=== PATIENT | male | born 1995 | race Caucasian/White ===

== ENCOUNTER 2016-09-28 23:35 | Emergency (ER) | payer OTHER ==
[2016-09-29] MEDS ORDERED: fentaNYL CITRATE INJ 50 MCG/ML AMP ONE
[2016-09-29] MEDS ORDERED: fentaNYL CITRATE INJ 50 MCG/ML AMP IV ONE (00:07)
[2016-09-29] MEDS ORDERED: ETOMIDATE INJECTION 2 MG/ML 20ML VIAL IV ONE ×2 (00:16)
[2016-09-29] MEDS ORDERED: SODIUM CHLORIDE 0.9% 1000ML 1,000 ML IVS ONE (00:16)
[2016-09-29] MEDS ORDERED: KETOROLAC TROMETHAMINE INJ 30 MG/ML VIAL IV ONE (00:16)
--- NOTE | 2016-09-29 00:21 | ED.PDOC ---
History of Present Illness - General Chief Complaint: Upper Extremity Injury Stated Complaint: dislocated shoulder Time Seen by Provider: 09/29/16 00:16 Source: patient Exam Limitations: no limitations - History of Present Illness Initial Comments: the patient is a 21-year-old male presenting to the emergency room secondary to a left anterior shoulder dislocation. He has dislocated the shoulder before but only very briefly. He is neurovascularly preserved. This occurred while wrestling. No other injuries. last normal intake was 2 hours prior. Occurred: just prior to arrival Pain - Upper Extremity: moderate: Shoulder, left Method of Injury: sports injury Improving Factors: immobilization Worsening Factors: movement Allergies/Adverse Reactions: Allergies NO KNOWN ALLERGY Allergy (Verified 09/29/16 00:06) Home Medications: Ambulatory Orders Uvleifuuufszu-Egap-Nhsnpfuoig [Fioricet] 1 ea PO Q8H PRN #21 tab 09/29/16 Review of Systems - Review of Systems Constitutional: States: no symptoms reported EENTM: States: no symptoms reported Respiratory: States: no symptoms reported Cardiology: States: no symptoms reported Gastrointestinal/Abdominal: States: no symptoms reported Genitourinary: States: no symptoms reported Musculoskeletal: States: see HPI Skin: States: no symptoms reported Neurological: States: no symptoms reported Endocrine: States: no symptoms reported All other Systems: No Change from Baseline Past Medical History (General) - Patient Medical History Hx Asthma: No Hx of COPD: No Hx Cardiac Disorders: No Hx Hypertension: No Hx Diabetes: No Surgical History: tonsillectomy - Vaccination History Hx Tetanus, Diphtheria Vaccination: No Hx Influenza Vaccination: No - Social History Hx Tobacco Use: No Hx Alcohol Use: Yes - was drinking Family Medical History - Family History Father Hx Family Hypertension: Yes Physical Exam - Physical Exam General Appearance: Alert, No apparent distress Eyes, Ears, Nose, Throat Exam: PERRL/EOMI, normal ENT inspection, TMs normal, pharynx normal Neck: non-tender, full range of motion, supple Cardiovascular/Respiratory: regular rate, rhythm, normal peripheral pulses, normal breath sounds, no respiratory distress Back Exam: normal inspection Shoulder Exam: deformity, pain Elbow/Forearm Exam: normal inspection, non-tender, no evidence of injury, normal ROM Wrist Exam: normal inspection, non-tender, no evidence of injury, normal ROM Hand Exam: normal inspection, non-tender, no evidence of injury, normal ROM Neuro/Tendon: normal sensation, normal tendon functions Mental Status: alert, oriented x 3 Skin Exam: normal color Comments: Vital Signs - 24 hr 09/28/16 23:48 Temperature 98.7 F Pulse Rate [ 77 left] Respiratory 18 Rate Blood Pressure 129/60 [right] O2 Sat by Pulse 97 Oximetry Progress - Progress Progress: 09/29/16 00:21 the patient is a 21-year-old male presenting to the emergency room secondary to a left anterior shoulder dislocation. Risk and benefits of reduction were explained and patient agrees to proceed. After IV access was started and adequate personnel at present the patient was given 75 g of fentanyl area after 10 more minutes he was given 15 mg of etomidate. Distraction of the shoulder was performed with internal rotation providing adequate reduction. Postreduction films were obtained. The patient was back awake within 5 minutes. Supplemental oxygen was used. The patient tolerated the procedure well. He was placed in a sling. The patient needs to follow-up with his primary care doctor next week for reevaluation for clearance for activity. He is neurovascularly intact after. Departure - Departure Clinical Impression: Dislocation of shoulder, anterior, left, closed Qualifiers: Encounter type: initial encounter Qualified Code(s): S43.015A - Anterior dislocation of left humerus, initial encounter Disposition: Discharge to Home or Self Care Condition: Fair Departure Forms: ED Discharge - Pt. Copy, Patient Portal Self Enrollment Instructions: DI for Shoulder Dislocation Diet: regular diet Activity: no pushing/pulling with affected limb Prescriptions: Evjgorwvkbupg-Ksgy-Beqbwueoat [Fioricet] 1 ea PO Q8H PRN #21 tab PRN Reason: Pain Home Medications: Ambulatory Orders Svyjnmuyyoefc-Jwxp-Ljdqsuwwsl [Fioricet] 1 ea PO Q8H PRN #21 tab 09/29/16 Additional Instructions: The patient presented with a left anterior close shoulder dislocation. Moderate sedation was performed for reduction. The patient tolerated the procedure well. Postreduction films show adequate position. The patient can use to Aleve twice daily for the next week with food to help reduce inflammation and discomfort. He will also be written for a short prescription of Fioricet. The patient was placed in a sling. He needs to follow-up with his primary care doctor next week for clearance to resume range of motion active exercises. ER warnings were given. the patient is neurovascularly intact at time of discharge.
--- NOTE | 2016-09-29 00:28 | RAD ---
EXAM DESCRIPTION: Shoulder,Left 1 View CLINICAL HISTORY: dislocation, post reduction COMPARISON: None. FINDINGS: Single view of the left shoulder was submitted. There is no discrete acute fracture or dislocation in this single view. Recommend further imaging as indicated. IMPRESSION: No acute abnormalities. Electronically signed by: Mehdi Moser MD 09/29/2016 12:27 AM CDT
[2016-09-29 01:00] VITALS: O2SAT 95
[2016-09-29 01:29] VITALS: BP 119/52; TEMP 98.1
== END 2016-09-29 01:28 | disposition home or self-care (01) ==
LOC: ER 23:35
DX: S43.015A Anterior dislocation of left humerus, initial encounter (principal); X58.XXXA Exposure to other specified factors, initial encounter; Y93.72 Activity, wrestling
CPT/HCPCS: 23650; 73020; 99285; J1885; J3010; J7030